=== PATIENT | female | born 1945 | race Caucasian/White ===

== ENCOUNTER → 2017-09-22 | Outpatient (CLI) | payer OTHER | LOC: CIMAGING 08:56 | PROVIDERS: ATTEND Family Medicine | DX: Z12.31 Encounter for screening mammogram for malignant neoplasm of breast (principal); Z80.3 Family history of malignant neoplasm of breast ==

== ENCOUNTER 2018-03-21 07:43 | Emergency (ER) | payer OTHER ==
[2018-03-21] MEDS ORDERED: diphenhydrAMINE 25 MG CAP PO ONE (08:57)
[2018-03-21] MEDS ORDERED: predniSONE 20 MG TAB PO ONE (08:57)
--- NOTE | 2018-03-21 09:03 | EDPHY ---
H & P Time Seen by Provider: 03/21/18 07:44 HPI/ROS: CHIEF COMPLAINT: Rash HISTORY OF PRESENT ILLNESS: Patient presents with rash to face neck chest arms and hands. She states that she has had multiple allergies essentially her whole life. She states she has"tried everything"and has seen pizza delivery many times. Most recently had a Medrol Dosepak several months ago given to her by her PCP after skin outbreak. She states that this particular outbreak started about 2 days ago and is perhaps the worst 1 she has ever had. Her and her are packing the house for moved to [place] and she thinks that she has been exposed to a lot of allergens recently. Generally her dermatitis comes and goes but has been getting worse over the last few months. Rash today involves the face and neck and there is some skin weeping around the neck. She also has edema to her face. She denies shortness of breath, wheezing , sore throat, voice changes. She describes the rash is both painful and itchy. She did start Claritin on Thursday which has not been helping. She denies any other recent illnesses. She has had no nausea or vomiting. The rash does not involve her torso or lower extremities other than a small patch behind her left knee. REVIEW OF SYSTEMS: Constitutional: No fever, no chills. Eyes: No discharge. ENT: No sore throat. Cardiovascular: No chest pain, no palpitations. Respiratory: No cough, no shortness of breath. Gastrointestinal: No abdominal pain, no vomiting. Genitourinary: No dysuria. Musculoskeletal: No back pain. Skin: Per HPI Neurological: No headache. General Appearance: Alert, no distress. Eyes: Pupils equal and round no pallor or injection. ENT, Mouth: Mucous membranes moist. Oropharynx clear, no lymphadenopathy. No oral edema. Respiratory: There are no retractions, lungs are clear to auscultation. Cardiovascular: Regular rate and rhythm. Gastrointestinal: Abdomen is soft and nontender, no masses, bowel sounds normal. Neurological: Awake and alert, no focal neurologic deficits. Skin: Spectacular rash involving the entire face, neck but sparing the scalp. Face and neck and upper chest are erythematous with scaly skin flaking and noticeable edema especially around the eyes. No specific open wounds or lesions. No blistering. Negative Nikolsky's sign. Borders of rash are diffuse without satellite lesions. Hands wrists and forearms similar to face however no edema noted there. Musculoskeletal: Neck is supple nontender. Extremities are symmetrical, full range of motion, no edema. Psychiatric: Patient is oriented X 3, there is no agitation. Medical/surgical history: Multiple food allergies, multiple other allergens. Hypertension, reactive airways disease. Social history: Nonsmoker. Currently living in [place] however moving to [place] soon. Smoking Status: Never smoked Constitutional: Initial Vital Signs Temperature (C) 36.6 C 03/21/18 07:54 Heart Rate 92 03/21/18 07:54 Respiratory Rate 18 03/21/18 07:54 Blood Pressure 157/88 H 03/21/18 07:54 O2 Sat (%) 97 03/21/18 07:54 O2 Delivery Mode Room Air Allergies/Adverse Reactions: Sulfa (Sulfonamide Antibiotics) Allergy (Verified 03/21/18 07:53) Home Medications: Medication Instructions Recorded Aloe Vera 03/21/18 Amlodipine Besylate 03/21/18 Cortisporin Cream 03/21/18 Lisinopril 03/21/18 Vit E/Vit E Mx/Squal/Phytostrl 03/21/18 predniSONE 40 mg PO DAILY #8 tab 03/21/18 Medical Decision Making Differential Diagnosis: Differential diagnosis includes but is not limited to in no particular order: Allergic reaction, drug rash, toxic epidermal necrolysis, cellulitis, impetigo. After evaluation do not think that this is an infectious process and no systemic symptoms to support that. Patient with extensive history of relapsing and remitting dermatitis and this likely represents an exacerbation of her underlying condition. I had a lengthy discussion with patient and her about recent medication changes, prescriptions and [id number] approaches to treatment. In the emergency department she was given Benadryl and prednisone and will be continued on prednisone as an outpatient for a total of 5 days. Also recommended continuing Benadryl if seems to be effective. She plans on using several topical [id number] remedies to help with the itching as well. She does have both primary care and pizza delivery available for follow-up. Return precautions reviewed in detail. Stable for outpatient care. Departure - Departure Clinical Impression: Rash Condition: Fair Instructions: Dermatitis (ED) Additional Instructions: Take the prednisone daily as prescribed. You had your 1st dose today in the emergency department. You were also given Benadryl, 50 mg, you can continue this dose every 6-8 hours if it seems to be helping. Stop taking the Claritin. You can use any topical creams including prednisolone as needed for itching. I also recommend the Aveeno products [id number]. Stay well hydrated. If you developed fever, vomiting, malaise or other concerning new symptoms or if the rash is getting worse instead of better you should return to the emergency department. Otherwise follow up with your primary care physician and pizza delivery as discussed. Do your best to avoid allergen exposure. Referrals: Patient,NotPresent [Primary Care Provider] - As per Instructions Prescriptions: predniSONE 40 mg PO DAILY #8 tab
[2018-03-21 09:21] VITALS: BP 142/66
== END 2018-03-21 09:19 | disposition home or self-care (01) ==
LOC: CED 07:43
DX: R21 Rash and other nonspecific skin eruption (principal); Z88.2 Allergy status to sulfonamides
CPT/HCPCS: 99283; J7512